=== PATIENT | male | born 1980 | race Two or more races ===

== ENCOUNTER 2017-03-13 17:42 | Emergency (ER) | payer BC ==
[2017-03-13] MEDS ORDERED: Ondansetron 4 MG/2 ML SDV IVPUSH ONE (17:55)
[2017-03-13] MEDS ORDERED: HYDROmorphone 1 MG/ML Syringe IVPUSH ONE (17:56)
[2017-03-13] MEDS ORDERED: Ketorolac 30 MG/ML SDV IVPUSH ONE (17:56)
--- NOTE | 2017-03-13 18:06 | EDM.PDOC ---
ED HPI GENERAL MEDICAL PROBLEM - General Chief Complaint: Genitourinary Problem Stated Complaint: POSS KIDNEY STONE Time Seen by Provider: 03/13/17 17:55 Source of Information: Reports: Patient History Limitations: Reports: No Limitations - History of Present Illness INITIAL COMMENTS - FREE TEXT/NARRATIVE: The patient presents with right flank pain and right groin pain. This started about 3 to 4 hours ago. He has nausea and vomiting. He has no dysuria but he has urgency and frequency. He has no hematuria. He has a history of kidney stones. He feel this is another kidney stones. He has no fever or chills. He denies chest pain or shortness of breath. Onset: Sudden Duration: Hour(s): (4) Location: Reports: Back (Right flank pain) Quality: Reports: Sharp Severity: Severe Improves with: Reports: None Worsens with: Reports: None Associated Symptoms: Reports: Nausea/Vomiting. Denies: Confusion, Chest Pain, Fever/Chills, Shortness of Breath Right Groin Pain Score (Numeric/FACES): 10 - Related Data Allergies Allergy/AdvReac Type Severity Reaction Status Date / Time No Known Allergies Allergy Verified 03/13/17 17:54 Home Meds: Home Meds Ondansetron [Zofran ODT] 4 mg PO Q6H PRN #20 tab.dis 03/13/17 [Rx] Tamsulosin HCl [Flomax] 0.4 mg PO DAILY #10 cap.er.24h 03/13/17 [Rx] oxyCODONE HCl/Acetaminophen [Percocet 5-325 mg Tablet] 1 - 2 each PO Q6HR PRN # 20 tablet 03/13/17 [Rx] ED ROS GENERAL - Review of Systems Review Of Systems: See Below Constitutional: Reports: No Symptoms HEENT: Reports: No Symptoms Respiratory: Reports: No Symptoms Cardiovascular: Reports: No Symptoms Endocrine: Reports: No Symptoms GI/Abdominal: Reports: Abdominal Pain, Nausea, Vomiting : Reports: No Symptoms Musculoskeletal: Reports: Back Pain (Right flank pain) Skin: Reports: No Symptoms ED EXAM, RENAL/ - Physical Exam Exam: See Below Exam Limited By: No Limitations General Appearance: Alert, No Apparent Distress Ears: Normal External Exam Nose: Normal Inspection Head: Atraumatic, Normocephalic Neck: Normal Inspection Respiratory/Chest: No Respiratory Distress, Lungs Clear, Normal Breath Sounds Cardiovascular: Regular Rate, Rhythm, No Edema, No Murmur GI/Abdominal: Soft, Non-Tender, No Organomegaly, No Mass Back Exam: CVA Tenderness (R) Extremities: Normal Inspection Neurological: Alert, Oriented, No Motor/Sensory Deficits Course - Vital Signs Last Recorded V/S: Last Vital Signs Temp 97 F 03/13/17 18:26 Pulse 90 03/13/17 18:26 Resp 16 03/13/17 18:26 BP 159/93 H 03/13/17 18:26 Pulse Ox 94 L 03/13/17 18:26 - Orders/Labs/Meds Orders: Active Orders 24 hr Category Date Time Status Abdomen Pelvis wo Cont [CT] Stat Exams 03/13/17 17:59 Taken ED Antiemetic Medication Reflex [OM.PC] Stat Oth 03/13/17 17:55 Ordered Labs: Laboratory Tests 03/13/17 03/13/17 03/13/17 Range/Units 18:00 18:05 18:05 WBC 13.24 H (4.23-9.07) K/mm3 RBC 5.41 (4.63-6.08) M/mm3 Hgb 16.3 (13.7-17.5) gm/L Hct 45.0 (40.1-51.0) % MCV 83.2 (79.0-92.2) fl MCH 30.1 (25.7-32.2) pg MCHC 36.2 H (32.2-35.5) g/dl RDW Std Deviation 38.8 (35.1-43.9) fL Plt Count 225 (163-337) K/mm3 MPV 9.8 (9.4-12.3) fl Neut % (Auto) 79.9 H (34.0-67.9) % Lymph % (Auto) 12.8 L (21.8-53.1) % [place] % (Auto) 6.0 (5.3-12.2) % Eos % (Auto) 0.8 (0.8-7.0) Baso % (Auto) 0.2 (0.1-1.2) % Neut # (Auto) 10.58 H (1.78-5.38) K/mm3 Lymph # (Auto) 1.70 (1.32-3.57) K/mm3 [place] # (Auto) 0.79 (0.30-0.82) K/mm3 Eos # (Auto) 0.10 (0.04-0.54) K/mm3 Baso # (Auto) 0.03 (0.01-0.08) K/mm3 Sodium 141 (136-145) mEq/L Potassium 4.2 (3.5-5.1) mEq/L Chloride 104 (98-107) mEq/L Carbon Dioxide 29 (21-32) mEq/L Anion Gap 12.2 (5-15) BUN 16 (7-18) mg/dL Creatinine 1.3 (0.7-1.3) mg/dL Est Cr Clr Drug Dosing 82.06 mL/min Estimated GFR (MDRD) > 60 (>60) mL/min BUN/Creatinine Ratio 12.3 L (14-18) Glucose 132 H (74-106) mg/dL Calcium 10.0 (8.5-10.1) mg/dL Total Bilirubin 0.5 (0.2-1.0) mg/dL AST 86 H (15-37) U/L ALT 170 H (16-63) U/L Alkaline Phosphatase 58 (46-116) U/L Total Protein 8.5 H (6.4-8.2) g/dl Albumin 4.6 (3.4-5.0) g/dl Globulin 3.9 gm/dL Albumin/Globulin Ratio 1.2 (1-2) Lipase 172 (73-393) U/L Urine Color Yellow (Yellow) Urine Appearance Slt cloudy H (Clear) Urine pH 5.5 (5.0-8.0) Ur Specific [place] > or = 1.030 (1.005-1.030) Urine Protein 2+ H (Negative) Urine Glucose (UA) Negative (Negative) Urine Ketones Negative (Negative) Urine Occult Blood 3+ H (Negative) Urine Nitrite Negative (Negative) Urine Bilirubin 1+ H (Negative) Urine Urobilinogen 0.2 (0.2-1.0) Ur Leukocyte Esterase Negative (Negative) Urine RBC 40-50 H (0-5) /hpf Urine WBC 0-5 (0-5) /hpf Ur Epithelial Cells 0-5 (0-5) /hpf Urine Bacteria Few (FEW) /hpf Urine Mucus Few (FEW) /hpf Meds: Medications Discontinued Medications Generic Name Dose Route Start Last Admin Trade Name Freq PRN Reason Stop Dose Admin Hydromorphone HCl 1 mg 03/13/17 17:56 03/13/17 18:12 Dilaudid IVPUSH 03/13/17 17:57 1 mg ONETIME ONE Administration Ketorolac Tromethamine 30 mg 03/13/17 17:56 03/13/17 18:10 Toradol IVPUSH 03/13/17 17:57 30 mg ONETIME ONE Administration Ondansetron HCl 4 mg 03/13/17 17:55 03/13/17 18:08 Zofran IVPUSH 03/13/17 17:56 4 mg ONETIME ONE Administration - Re-Assessments/Exams Free Text/Narrative Re-Assessment/Exam: 03/13/17 18:08 I ordered an IV NS at 125mL/hr, zofran 4mg IV, toradol 30mg IV, dilaudid 1mg IV , labs, UA and CT abdomen and pelvis. 03/13/17 18:41 His WBC is elevated at 13.24. His glucose is elevated at 132 03/13/17 18:53 His UA shows blood and no UTI. His CT shows mild right hydroureter secondary to 4 x 3 mm calculus in the distal right ureter. He feels better. I will give him some percocet for pain, zofran and flomax. Departure - Departure Time of Disposition: 18:55 Disposition: Home, Self-Care 01 Condition: Good Clinical Impression: Kidney stone, Ureteral calculus, right - Discharge Information Prescriptions: oxyCODONE HCl/Acetaminophen [Percocet 5-325 mg Tablet] 1 - 2 each PO Q6HR PRN # 20 tablet PRN Reason: Pain Ondansetron [Zofran ODT] 4 mg PO Q6H PRN #20 tab.dis PRN Reason: Nausea/Vomiting Tamsulosin HCl [Flomax] 0.4 mg PO DAILY #10 cap.er.24h Referrals: Korey Leal MD [Physician] - 1 Week Forms: ED Department Discharge Additional Instructions: Take flomax daily until the stone passes. Take percocet as needed for pain. You may also take motrin for pain. Drink plenty of fluids. Follow up with Dr Leal the urologist if you do not pass it within a few days. Please return if you are worse. - My Orders Last 24 Hours: My Active Orders 03/13/17 17:55 ED Antiemetic Medication Reflex [OM.PC] Stat 03/13/17 17:59 Abdomen Pelvis wo Cont [CT] Stat - Assessment/Plan Last 24 Hours: My Active Orders 03/13/17 17:55 ED Antiemetic Medication Reflex [OM.PC] Stat 03/13/17 17:59 Abdomen Pelvis wo Cont [CT] Stat
[2017-03-13 19:13] VITALS: BP 155/84
--- NOTE | 2017-03-16 10:06 | CT ---
CT abdomen and pelvis Technique: Multiple axial sections were obtained from above the kidneys inferiorly through the pubic symphysis. Intravenous and oral contrast was not utilized. Study has been performed as a ureteral stone protocol. Findings: Right ureter is prominent down to the UVJ. This finding is caused by an obstructing distal right ureteral stone measuring about 4-5 mm. This stone occurs approximately 7 mm from the UVJ. No other abnormal calcifications are seen along the course of the ureters. No abnormal calcifications are seen within the kidneys. Fatty infiltration is seen within the liver. Spleen appears within normal limits. Visualized posterior lung bases are clear. Adrenal glands show no nodule. Pancreas is within normal limits. Gallbladder shows no calcified gallstones. Aorta shows no aneurysmal dilatation. No retroperitoneal adenopathy or mesenteric abnormalities are seen. No pelvic mass or adenopathy is seen. Appendix is seen which is normal. Bone window settings were reviewed which appear within normal limits for the patient's age. Impression: 1. Mildly dilated right ureter caused by a distal right ureteral stone measuring about 4-5 mm. As mentioned above, this stone is located approximately 7 mm from the UVJ. 2. Fatty infiltration within the liver. 3. No additional abnormality is identified on noncontrast CT study of the abdomen and pelvis performed as a ureteral stone protocol. Diagnostic code #3 Agree with preliminary report issued by [facility] ([facility] preliminary report dictated on 03/13/17, 7:34 PM Central Time)
== END 2017-03-13 19:10 | disposition home or self-care (01) ==
LOC: JD.ED 17:42
DX: N20.2 Calculus of kidney with calculus of ureter (principal); Z79.899 Other long term (current) drug therapy
CPT/HCPCS: 36415; 74176; 80053; 81001; 83690; 85025; 96374; 96375; 99284; J1170; J1885; J2405